=== PATIENT | female | born 1965 | race Caucasian/White ===

== ENCOUNTER → 2016-10-18 | Outpatient (CLI) | payer OTHER ==
[~2016-10-18] MED LIST: ACETAMINOPHEN-H1 TA2 PO; ATIVAN0.5 MG PO; ATIVAN1 MG PO; AUGMENTIN 875875 MG PO; BIOTIN1000 MCG PO; BP MED; Bactrim 200 MG/30 ML PO; CEPHALEXIN500 M1 PO; CIPROFLOXACIN500 MG PO; CLINDAMYCIN150 MG; CYMBALTA60 MG; DIFLUCAN150 MG PO; FLEXERIL10 MG PO; Fioricet 325 MG1 TAB PO; HUMALOG100 U/ML SC; HYDR12.5C PO; INSULIN PUMP; KEFLEX500 M1 PO; LAMISIL250 MG; LANTUS100 U/ML SC; LINZESS145 MC1 PO; LIPITOR10 MG PO; LISINOPRIL10 MG PO; LISINOPRIL40 MG PO; LYRICA100 MG PO; LYRICA150 MG PO; METFORMIN500 MG PO; NAPROSYN500 MG PO; NOVOLOG 701 UNIT/0.0; NOVOLOG100 U/ML SC; OMEPRAZOLE20 MG PO; PAMELOR50 MG PO; QUETIAPINE FUM100 M1; QUETIAPINE FUM200 M2 PO; REGLAN10 M1 PO; SYNTHROID,LEVO50 MCG PO; TAPAZOLE5 MG; TEFLARO600 MG IV; VICODIN 5/500 505 MG PO; VICODIN 500 MG-1 TAB PO; VICODIN ES 7501 TAB PO; VISTARIL50 MG PO; VITAMIN D50000 I3 PO; WELLBUTRIN SR150 MG PO; ZOFRAN ODT4 MG SL; [UNRECOGNIZED DRUG - REMARK]
[2016-10-18 09:53] LABS: BASO % 0.4 % (0.0-1.0); EOS # 0.3 10*3/uL (0.0-0.4); EOS % 2.8 % (1.0-4.0); HEMATOCRIT 40.4 % (37.0-47.0); HEMOGLOBIN 13.6 g/dl (12.0-16.0); LYMPH # 2.5 10*3/uL (1.3-4.4); LYMPH % 27.1 % (27.0-41.0); MEAN CORPUSCULAR HGB 31.6 pg (27.0-31.0); MEAN CORPUSCULAR HGB CONC 33.7 g/dl (33.0-37.0); MEAN PLATELET VOLUME 12.2 fl (9.6-12.3); MONO # 0.7 10*3/uL (0.1-1.0); MONO % 7.3 % (3.0-9.0); NEUT # 5.8 10*3/uL (2.3-7.9); NEUT % 62.2 % (47.0-73.0); PLATELET COUNT AUTOMATED 268 10*3/uL (130-400); RED CELL DISTRI WIDTH 12.9 % (0-14.5); WHITE BLOOD COUNT 9.3 10*3/uL (4.8-10.8)
[2016-10-18 10:23] LABS: ALBUMIN 3.6 gm/dl (3.1-4.5); ALKALINE PHOSPHATASE 102 U/L (45-117); BUN 13 mg/dl (7-24); CHLORIDE 105 mmol/L (98-107); CREATININE 1.09 mg/dL (0.55-1.02); POTASSIUM 4.3 mmol/L (3.5-5.1); SGOT/AST 18 IU/L (3-35); SGPT/ALT 22 U/L (12-78); SODIUM 139 mmol/L (136-145); TOTAL PROTEIN 7.4 gm/dL (6.4-8.2)
[2016-10-19 11:05] LABS: CREATININE,URINE 110.1 mg/dL (Not Estab.); MICRO ALBUMIN/CRE RATIO 9.9 (0.0-30.0)
== END | disposition home or self-care (01) ==
LOC: LAB 09:15
PROVIDERS: Family Medicine Adult Medicine
DX: E10.42 Type 1 diabetes mellitus with diabetic polyneuropathy (principal)

== ENCOUNTER → 2016-11-03 | Outpatient (CLI) | payer OTHER ==
--- NOTE | ~2016-11-03 | PR ---
[place], [place] PROGRESS NOTE NAME: KAREN TELLO [facility] #: [id number] UNIT #: [id number] ROOM: DOCTOR: GINNY HOUSE DPM BIRTHDATE: [birth year] DOS: 11/03/2016 SUBJECTIVE: This is a new patient to me, but she had been seen previously at [facility]. She is here with a new complaint. She has a right great toe area of ulceration and infection. This has been present since August. She states she has been seen by a local spindle tester who just ordered to put antibiotic ointment and a Band-Aid on it, which she has been doing and has not gotten any better. It did become infected and she was on a round of clindamycin from her primary care physician. She has completed that therapy. PHYSICAL EXAMINATION: Lower extremity, it is noted that the right great toe has an area adjacent on the medial aspect that looks to measure 1.2 cm x 0.4 cm x 0.1 cm. No drainage, odor, or deep tracking is noted. This area is again adjacent to what appears to be incurvated portion of the right great toenail. There is no cellulitis, temperature is warm. Prior to her examination, LEO was obtained and on this limb, it was 0.5. DP and PT pulses are not palpable. No hair growth on the skin. IMPRESSION: Diabetic ulceration, possibly perionychia causing this complaint on the right great toe, but because of her what appears to be decreased vascular status on this limb, I am going to recommend we get vascular testing initially prior to any kind of intervention. The patient will be scheduled for ABIs, segmental pressures and PVRs. I will call the patient with these results. For now, we will use bacitracin and Band-Aid to the area daily and then call the patient with those results to see what her blood flow is like and see if there is an appropriate recommendation for vascular intervention and we will go from there. GINNY HOUSE DPM CM:PNTRANS [id number] GINNY HOUSE DPM 11/03/16 1104 interface
== END | disposition home or self-care (01) ==
LOC: WOUNDCARE 02:45 → US 02:45 → LAB 02:45 → WOUNDCARE 11:39
DX: E11.621 Type 2 diabetes mellitus with foot ulcer (principal); L97.412 Non-pressure chronic ulcer of right heel and midfoot with fat layer exposed; I70.235 Atherosclerosis of native arteries of right leg with ulceration of other part of foot; I70.245 Atherosclerosis of native arteries of left leg with ulceration of other part of foot

== ENCOUNTER → 2016-11-08 | Outpatient (CLI) | payer OTHER | END | disposition home or self-care (01) | LOC: ORTHO 02:21 | DX: M25.522 Pain in left elbow (principal) ==

== ENCOUNTER → 2016-11-10 | Outpatient (CLI) | payer OTHER ==
--- NOTE | ~2016-11-10 | PR ---
[place], [place] PROGRESS NOTE NAME: KAREN TELLO [facility] #: [id number] UNIT #: [id number] ROOM: DOCTOR: GINNY HOUSE DPM BIRTHDATE: [birth year] DOS: 11/10/2016 SUBJECTIVE: The patient is seen for right great toe ulceration. She did go for vascular studies last week and they did come back without any evidence of occlusion. PHYSICAL EXAMINATION: It is noted that the great toe wound is very small at 0.5 x 0.3 x 0.1. This area was debrided of slough, debris and necrotic tissue through to subcutaneous. The patient tolerated procedure well and minimal bleeding was noted that was controlled via pressure. No signs of infection or any other complications. IMPRESSION: Grade 1 diabetic ulceration, progressing well. PLAN: 1. Evaluate. 2. Debridement was performed. The patient will continue to use the bacitracin and a Band-Aid to the area and reappoint in 1 week. GINNY HOUSE DPM CM:PNTRANS [id number] GINNY HOUSE DPM 11/10/16 1348 interface
== END | disposition home or self-care (01) ==
LOC: WOUNDCARE 02:40
DX: E11.621 Type 2 diabetes mellitus with foot ulcer (principal); L97.412 Non-pressure chronic ulcer of right heel and midfoot with fat layer exposed; L97.511 Non-pressure chronic ulcer of other part of right foot limited to breakdown of skin

== ENCOUNTER → 2016-11-17 | Outpatient (CLI) | payer OTHER | END | disposition home or self-care (01) | LOC: WOUNDCARE 02:12 | DX: E11.621 Type 2 diabetes mellitus with foot ulcer (principal); L97.412 Non-pressure chronic ulcer of right heel and midfoot with fat layer exposed; F17.210 Nicotine dependence, cigarettes, uncomplicated ==

== ENCOUNTER → 2017-02-14 | Outpatient (CLI) | payer OTHER | END | disposition home or self-care (01) | LOC: WOUNDCARE 01:28 | DX: E11.621 Type 2 diabetes mellitus with foot ulcer (principal); L97.411 Non-pressure chronic ulcer of right heel and midfoot limited to breakdown of skin; F17.210 Nicotine dependence, cigarettes, uncomplicated ==

== ENCOUNTER → 2017-04-18 | Outpatient (CLI) | payer OTHER | END | disposition home or self-care (01) | LOC: RAD 16:02 | DX: M79.674 Pain in right toe(s) (principal); M79.671 Pain in right foot ==

== ENCOUNTER → 2017-11-07 | Outpatient (CLI) | payer OTHER ==
[~2017-11-07] MED LIST changes: +CYCLOBENZAPRINE10 MG PO; +PREDNISONE50 MG PO
== END | disposition home or self-care (01) ==
LOC: CANSCHCLI → MRI 10-25 13:00
DX: M48.02 Spinal stenosis, cervical region (principal); M47.892 Other spondylosis, cervical region; M50.23 Other cervical disc displacement, cervicothoracic region; M48.061 Spinal stenosis, lumbar region without neurogenic claudication; M51.27 Other intervertebral disc displacement, lumbosacral region; M62.838 Other muscle spasm; M19.90 Unspecified osteoarthritis, unspecified site; R20.0 Anesthesia of skin; R20.2 Paresthesia of skin; R42 Dizziness and giddiness; M24.20 Disorder of ligament, unspecified site

== ENCOUNTER 2018-02-02 13:06 | Emergency (ER) | payer OTHER ==
[~2018-02-02] VITALS: Ht 167.6 cm; Wt 59.9 kg
== END 2018-02-02 15:19 | disposition home or self-care (01) ==
LOC: ED 13:06
DX: M79.661 Pain in right lower leg (principal); G89.18 Other acute postprocedural pain; G89.29 Other chronic pain; E11.610 Type 2 diabetes mellitus with diabetic neuropathic arthropathy; F17.200 Nicotine dependence, unspecified, uncomplicated; Z79.4 Long term (current) use of insulin; Z88.1 Allergy status to other antibiotic agents; Z79.899 Other long term (current) drug therapy

== ENCOUNTER → 2018-03-08 | Outpatient (CLI) | payer OTHER | END | disposition home or self-care (01) | LOC: WOUNDCARE 07:22 | DX: E11.621 Type 2 diabetes mellitus with foot ulcer (principal); L97.511 Non-pressure chronic ulcer of other part of right foot limited to breakdown of skin; E11.51 Type 2 diabetes mellitus with diabetic peripheral angiopathy without gangrene; E11.21 Type 2 diabetes mellitus with diabetic nephropathy; K21.9 Gastro-esophageal reflux disease without esophagitis; Z87.891 Personal history of nicotine dependence ==

== ENCOUNTER → 2018-03-15 | Outpatient (CLI) | payer OTHER | END | disposition home or self-care (01) | LOC: WOUNDCARE 03:10 | DX: E11.621 Type 2 diabetes mellitus with foot ulcer (principal); L97.511 Non-pressure chronic ulcer of other part of right foot limited to breakdown of skin; E11.51 Type 2 diabetes mellitus with diabetic peripheral angiopathy without gangrene; E11.21 Type 2 diabetes mellitus with diabetic nephropathy; Z87.891 Personal history of nicotine dependence ==

== ENCOUNTER → 2018-03-15 | Outpatient (CLI) | payer OTHER | END | disposition home or self-care (01) | LOC: RAD 10:49 | DX: L97.519 Non-pressure chronic ulcer of other part of right foot with unspecified severity (principal); L03.031 Cellulitis of right toe; I70.208 Unspecified atherosclerosis of native arteries of extremities, other extremity; E11.21 Type 2 diabetes mellitus with diabetic nephropathy ==

== ENCOUNTER → 2018-03-18 | Outpatient (CLI) | payer OTHER | END | disposition home or self-care (01) | LOC: US 02:28 | DX: I74.3 Embolism and thrombosis of arteries of the lower extremities (principal); I73.9 Peripheral vascular disease, unspecified; T81.89XA Other complications of procedures, not elsewhere classified, initial encounter; E11.9 Type 2 diabetes mellitus without complications; I10 Essential (primary) hypertension; Z87.891 Personal history of nicotine dependence ==

== ENCOUNTER → 2018-03-22 | Outpatient (CLI) | payer OTHER | END | disposition home or self-care (01) | LOC: WOUNDCARE 03:07 | DX: E11.621 Type 2 diabetes mellitus with foot ulcer (principal); L97.511 Non-pressure chronic ulcer of other part of right foot limited to breakdown of skin; E11.21 Type 2 diabetes mellitus with diabetic nephropathy; E11.51 Type 2 diabetes mellitus with diabetic peripheral angiopathy without gangrene; Z87.891 Personal history of nicotine dependence ==

== ENCOUNTER → 2018-04-18 | Outpatient (CLI) | payer OTHER | END | disposition home or self-care (01) | LOC: RAD 17:08 | DX: M43.22 Fusion of spine, cervical region (principal); Z98.1 Arthrodesis status ==

== ENCOUNTER → 2018-09-17 | Outpatient (CLI) | payer OTHER | END | disposition home or self-care (01) | LOC: RAD 16:25 | DX: M48.02 Spinal stenosis, cervical region (principal); M43.12 Spondylolisthesis, cervical region; R20.0 Anesthesia of skin; Z98.1 Arthrodesis status ==

== ENCOUNTER 2018-12-19 14:30 | Emergency (ER) | payer OTHER ==
[~2018-12-19] VITALS: Ht 167.6 cm; Wt 65.3 kg
[2018-12-19 15:15] LABS: BASO % 0.5 % (0.0-1.0); EOS # 0.1 10*3/uL (0.0-0.4); EOS % 1.2 % (1.0-4.0); HEMATOCRIT 38.2 % (37.0-47.0); HEMOGLOBIN 12.6 g/dl (12.0-16.0); LYMPH # 2.2 10*3/uL (1.3-4.4); LYMPH % 32.6 % (27.0-41.0); MEAN CELL VOLUME 92.3 fl (81.0-99.0); MEAN CORPUSCULAR HGB 30.4 pg (27.0-31.0); MEAN PLATELET VOLUME 11.9 fl (9.6-12.3); MONO # 0.4 10*3/uL (0.1-1.0); MONO % 5.3 % (3.0-9.0); NEUT % 60.1 % (47.0-73.0); PLATELET COUNT AUTOMATED 238 10*3/uL (130-400); RED BLOOD COUNT 4.14 10*6/uL (4.10-5.10); RED CELL DISTRI WIDTH 12.6 % (0-14.5); WHITE BLOOD COUNT 6.7 10*3/uL (4.8-10.8)
[2018-12-19 15:36] LABS: ALBUMIN 3.8 gm/dl (3.1-4.5); ALKALINE PHOSPHATASE 73 U/L (45-117); BUN 14 mg/dl (7-24); CHLORIDE 107 mmol/L (98-107); CREATININE 1.03 mg/dL (0.55-1.02); LIPASE 119 U/L (73-393); POTASSIUM 3.7 mmol/L (3.5-5.1); SGOT/AST 18 IU/L (3-35); SGPT/ALT 25 U/L (12-78); SODIUM 140 mmol/L (136-145); TOTAL PROTEIN 7.4 gm/dL (6.4-8.2)
[2018-12-19 15:44] LABS: BILIRUBIN NEGATIVE (NEGATIVE); BLOOD NEGATIVE (NEGATIVE); CLARITY CLEAR (CLEAR); COLOR STRAW (YELLOW); GLUCOSE NEGATIVE (NEGATIVE); KETONE NEGATIVE (NEGATIVE); LEUKO ESTERASE 2+ (NEGATIVE); NITRITE NEGATIVE (NEGATIVE); SPECIFIC GRAVITY <= 1.005 (1.005-1.030); UROBILINOGEN 0.2 E.U./dl (0.2-1.0)
[2018-12-19 16:10] LABS: EPITHELIAL CELLS TNTC; WBC 51-100 wbc/hpf (0-5)
[2018-12-19 16:11] LABS: BACTERIA TRACE
[2018-12-19] MEDS ORDERED: SEPTDS PO ×2 (17:05→17:23)
[2018-12-19] MEDS ORDERED: NAPROSYN500 MG PO ×2 (17:05→17:23)
[2018-12-19] MEDS ORDERED: TYLENOL325 M1 PO ×2 (17:06→17:23)
== END 2018-12-19 17:15 | disposition home or self-care (01) ==
LOC: ED 14:30
PROVIDERS: Emergency Medicine
DX: N39.0 Urinary tract infection, site not specified (principal); N20.0 Calculus of kidney; E10.628 Type 1 diabetes mellitus with other skin complications; E10.43 Type 1 diabetes mellitus with diabetic autonomic (poly)neuropathy; K31.84 Gastroparesis; E03.9 Hypothyroidism, unspecified; E78.5 Hyperlipidemia, unspecified; I10 Essential (primary) hypertension; F17.200 Nicotine dependence, unspecified, uncomplicated; Z79.2 Long term (current) use of antibiotics; Z79.899 Other long term (current) drug therapy

== ENCOUNTER → 2019-01-03 | Outpatient (CLI) | payer OTHER ==
[~2019-01-03] MED LIST changes: +SEPTDS PO; +TYLENOL325 M1 PO
== END | disposition home or self-care (01) ==
LOC: ORTHO 00:27
DX: M19.042 Primary osteoarthritis, left hand (principal)

== ENCOUNTER → 2019-09-03 | Outpatient (CLI) | payer OTHER | END | disposition home or self-care (01) | LOC: US 13:34 | DX: Z01.818 Encounter for other preprocedural examination (principal); E04.1 Nontoxic single thyroid nodule ==

== ENCOUNTER → 2019-09-04 | Outpatient (CLI) | payer OTHER | END | disposition home or self-care (01) | LOC: MAMMO 00:30 | DX: Z12.31 Encounter for screening mammogram for malignant neoplasm of breast (principal); R73.03 Prediabetes ==

== ENCOUNTER → 2020-05-05 | Outpatient (CLI) | payer OTHER | END | disposition home or self-care (01) | LOC: COVID19 13:19 | PROVIDERS: ATTEND Family Medicine | DX: U07.1 COVID-19 (principal) ==

== ENCOUNTER 2020-05-24 23:54 | Emergency (ER) | payer OTHER ==
[~2020-05-24] VITALS: Ht 167.6 cm; Wt 68.0 kg
[2020-05-25 00:25] LABS: BASO # 0.1 10*3/uL (0.0-0.1); BASO % 0.5 % (0.0-1.0); EOS # 0.1 10*3/uL (0.0-0.4); EOS % 1.1 % (1.0-4.0); HEMATOCRIT 37.7 % (37.0-47.0); LYMPH % 21.8 % (27.0-41.0); MEAN CELL VOLUME 93.8 fl (81.0-99.0); MEAN CORPUSCULAR HGB 30.8 pg (27.0-31.0); MEAN CORPUSCULAR HGB CONC 32.9 g/dl (33.0-37.0); MEAN PLATELET VOLUME 12.4 fl (9.6-12.3); MONO # 0.6 10*3/uL (0.1-1.0); NEUT # 6.6 10*3/uL (2.3-7.9); NEUT % 70.4 % (47.0-73.0); PLATELET COUNT AUTOMATED 240 10*3/uL (130-400); RED BLOOD COUNT 4.02 10*6/uL (4.10-5.10); RED CELL DISTRI WIDTH 11.8 % (0-14.5); WHITE BLOOD COUNT 9.3 10*3/uL (4.8-10.8)
[2020-05-25 00:40] LABS: ALBUMIN 3.4 gm/dl (3.1-4.5); CREATININE 1.55 mg/dL (0.55-1.02); POTASSIUM 4.2 mmol/L (3.5-5.1); TOTAL PROTEIN 7.1 gm/dL (6.4-8.2)
[2020-05-25 01:29] LABS: BILIRUBIN Negative (Negative); BLOOD Negative (Negative); CLARITY Clear (Clear); COLOR Yellow (Yellow); GLUCOSE 3+ (Negative); KETONE 1+ (Negative); LEUKO ESTERASE Negative (Negative); NITRITE Negative (Negative); SPECIFIC GRAVITY 1.015 (1.001-1.030)
[2020-05-25 01:36] LABS: EPITHELIAL CELLS 16-20
== END 2020-05-25 02:18 | disposition home or self-care (01) ==
LOC: ED 23:54
PROVIDERS: Internal Medicine
DX: E10.65 Type 1 diabetes mellitus with hyperglycemia (principal); N17.9 Acute kidney failure, unspecified; E10.22 Type 1 diabetes mellitus with diabetic chronic kidney disease; N18.9 Chronic kidney disease, unspecified; Z79.2 Long term (current) use of antibiotics; Z79.899 Other long term (current) drug therapy; Z79.4 Long term (current) use of insulin; Z98.890 Other specified postprocedural states

== ENCOUNTER → 2020-08-03 | Outpatient (CLI) | payer OTHER, MEDICAID | END | disposition home or self-care (01) | LOC: MAMMO 13:30 → US 13:30 | PROVIDERS: ATTEND Nurse Practitioner Family | DX: R10.2 Pelvic and perineal pain (principal); Z78.0 Asymptomatic menopausal state ==

== ENCOUNTER → 2020-09-02 | Outpatient (CLI) | payer OTHER, MEDICAID | END | disposition home or self-care (01) | LOC: MAMMO 08-03 13:30 | PROVIDERS: ATTEND Family Medicine | DX: M47.816 Spondylosis without myelopathy or radiculopathy, lumbar region (principal); R92.8 Other abnormal and inconclusive findings on diagnostic imaging of breast; M50.30 Other cervical disc degeneration, unspecified cervical region; M48.02 Spinal stenosis, cervical region; M25.78 Osteophyte, vertebrae; T85.43XD Leakage of breast prosthesis and implant, subsequent encounter ==

== ENCOUNTER → 2020-09-16 | Outpatient (CLI) | payer OTHER, MEDICAID ==
[2020-09-16 12:49] LABS: HEMATOCRIT 38.5 % (37.0-47.0); MEAN CELL VOLUME 95.8 fl (81.0-99.0); MEAN CORPUSCULAR HGB 31.1 pg (27.0-31.0); MEAN CORPUSCULAR HGB CONC 32.5 g/dl (33.0-37.0); MEAN PLATELET VOLUME 11.9 fl (9.6-12.3); RED BLOOD COUNT 4.02 10*6/uL (4.10-5.10); RED CELL DISTRI WIDTH 13.7 % (0-14.5); WHITE BLOOD COUNT 7.8 10*3/uL (4.8-10.8)
[2020-09-16 13:07] LABS: ALKALINE PHOSPHATASE 85 U/L (45-117); BUN 16 mg/dl (7-24); CHLORIDE 108 mmol/L (98-107); CHOLESTEROL 164 mg/dL (<200); CREATININE 1.02 mg/dL (0.55-1.02); LDL CHOLESTEROL 69 mg/dL (9-159); POTASSIUM 4.5 mmol/L (3.5-5.1); SGOT/AST 17 IU/L (3-35); SGPT/ALT 22 U/L (12-78); SODIUM 133 mmol/L (136-145); TOTAL PROTEIN 7.5 gm/dL (6.4-8.2); TRIGLYCERIDES 150 mg/dl (<150)
[2020-09-21 11:07] LABS: HLA-B27 ANTIGEN Negative (.)
== END | disposition home or self-care (01) ==
LOC: LAB 12:11
PROVIDERS: ATTEND Family Medicine
DX: Z13.220 Encounter for screening for lipoid disorders (principal); M54.9 Dorsalgia, unspecified; R07.81 Pleurodynia; E10.9 Type 1 diabetes mellitus without complications; L75.0 Bromhidrosis; F41.9 Anxiety disorder, unspecified

== ENCOUNTER → 2020-10-22 | Outpatient (CLI) | payer OTHER, MEDICAID | END | disposition home or self-care (01) | LOC: MRI 09:50 | PROVIDERS: ATTEND Physician Assistant Medical | DX: M47.22 Other spondylosis with radiculopathy, cervical region (principal); M25.78 Osteophyte, vertebrae; R29.898 Other symptoms and signs involving the musculoskeletal system; G56.03 Carpal tunnel syndrome, bilateral upper limbs; M43.22 Fusion of spine, cervical region ==

== ENCOUNTER → 2021-01-18 | Day surgery (SDC) | payer OTHER, MEDICAID ==
[~2021-01-18] VITALS: Ht 167.6 cm; Wt 70.3 kg
[~2021-01-18] MED LIST changes: +CLOPIDOGREL75 MG PO; +HYDROCODONE-AC1 EAC1 PO; +ROSUVASTATIN CA20 MG PO
[2021-01-18 06:45] VITALS: BP 147/87
[2021-01-18 09:12] VITALS: BP 137/72
[2021-01-18 09:27] VITALS: BP 141/73
[2021-01-18 09:42] VITALS: BP 151/81
== END | disposition home or self-care (01) ==
LOC: SDC 06:28
PROVIDERS: ATTEND Orthopaedic Surgery
DX: G56.02 Carpal tunnel syndrome, left upper limb (principal); M65.842 Other synovitis and tenosynovitis, left hand; G56.22 Lesion of ulnar nerve, left upper limb; F32.9 Major depressive disorder, single episode, unspecified; I10 Essential (primary) hypertension; E11.40 Type 2 diabetes mellitus with diabetic neuropathy, unspecified; Z79.899 Other long term (current) drug therapy; Z20.822 Contact with and (suspected) exposure to COVID-19

== ENCOUNTER 2021-02-25 15:22 | Emergency (ER) | payer OTHER, MEDICAID | END 2021-02-25 20:39 | disposition home or self-care (01) | LOC: ED 15:22 | DX: J06.9 Acute upper respiratory infection, unspecified (principal); E11.9 Type 2 diabetes mellitus without complications; F17.200 Nicotine dependence, unspecified, uncomplicated; Z79.899 Other long term (current) drug therapy; Z79.4 Long term (current) use of insulin; Z98.890 Other specified postprocedural states; Z98.51 Tubal ligation status ==

== ENCOUNTER → 2021-03-09 | Day surgery (SDC) | payer OTHER, MEDICAID | END | disposition home or self-care (01) | LOC: SDC 13:30 | PROVIDERS: ATTEND Orthopaedic Surgery | DX: E10.42 Type 1 diabetes mellitus with diabetic polyneuropathy (principal) ==

== ENCOUNTER → 2021-03-29 | Outpatient (CLI) | payer OTHER, MEDICAID | END | disposition home or self-care (01) | LOC: RAD 16:59 | PROVIDERS: ATTEND Nurse Practitioner Primary Care | DX: M79.89 Other specified soft tissue disorders (principal); L03.031 Cellulitis of right toe ==

== ENCOUNTER → 2021-09-16 | Outpatient (CLI) | payer OTHER, MEDICAID ==
[2021-09-16 13:12] LABS: BILIRUBIN Negative (Negative); BLOOD Negative (Negative); CLARITY Clear (Clear); COLOR Yellow (Yellow); GLUCOSE Negative (Negative); KETONE Negative (Negative); LEUKO ESTERASE 1+ (Negative); NITRITE Negative (Negative); PH 6.5 (4.5-8.0)
[2021-09-16 13:39] LABS: BACTERIA 1+
[2021-09-16 13:41] LABS: BUN 14 mg/dl (7-24); CHLORIDE 106 mmol/L (98-107); CHOLESTEROL 154 mg/dL (<200); CREATININE 1.04 mg/dL (0.55-1.02); POTASSIUM 4.2 mmol/L (3.5-5.1); SGOT/AST 16 IU/L (3-35); SGPT/ALT 16 U/L (12-78); SODIUM 139 mmol/L (136-145); TOTAL PROTEIN 7.3 gm/dL (6.4-8.2); TRIGLYCERIDES 90 mg/dl (<150); URIC ACID 4.5 mg/dL (2.6-6.0)
[2021-09-16 13:44] LABS: VITAMIN D, 25-HYDROXY 29.1 ng/mL (30-100)
[2021-09-16 13:47] LABS: ALKALINE PHOSPHATASE 92 U/L (45-117); LDL CHOLESTEROL 70 mg/dL (9-159)
== END | disposition home or self-care (01) ==
LOC: LAB 12:40
PROVIDERS: ATTEND Internal Medicine
DX: E10.65 Type 1 diabetes mellitus with hyperglycemia (principal); E78.2 Mixed hyperlipidemia; E55.9 Vitamin D deficiency, unspecified; M10.9 Gout, unspecified; G62.9 Polyneuropathy, unspecified; E04.1 Nontoxic single thyroid nodule

== ENCOUNTER → 2022-02-27 | Outpatient (CLI) | payer OTHER, MEDICAID ==
[2022-02-27 10:40] LABS: BILIRUBIN Negative (Negative); BLOOD Negative (Negative); CLARITY Clear (Clear); COLOR Yellow (Yellow); GLUCOSE 3+ (Negative); KETONE Negative (Negative); LEUKO ESTERASE 2+ (Negative); NITRITE Negative (Negative); PH 6.5 (4.5-8.0)
[2022-02-27 10:58] LABS: ALKALINE PHOSPHATASE 92 U/L (46-116); BUN 14 mg/dl (9-23); CHLORIDE 106 mmol/L (98-107); CHOLESTEROL 162 mg/dL (<200); LDL CHOLESTEROL 68 mg/dL (9-159); POTASSIUM 4.4 mmol/L (3.4-5.1); SGPT/ALT 20 U/L (10-49); THYROID STIM HORMONE (HS) 2.961 uIU/ml (0.550-4.780); TOTAL PROTEIN 7.5 gm/dL (6.0-8.0); TRIGLYCERIDES 71 mg/dl (<150); URIC ACID 5.7 mg/dL (3.1-9.2)
[2022-02-27 11:14] LABS: VITAMIN D, 25-HYDROXY 19.2 ng/mL (30-100)
[2022-02-27 11:42] LABS: BACTERIA TRACE; EPITHELIAL CELLS 16-20; WBC 16-20 wbc/hpf (0-5)
== END | disposition home or self-care (01) ==
LOC: LAB 10:11
PROVIDERS: ATTEND Internal Medicine
DX: E10.65 Type 1 diabetes mellitus with hyperglycemia (principal); E55.9 Vitamin D deficiency, unspecified; G62.9 Polyneuropathy, unspecified; E04.1 Nontoxic single thyroid nodule; E78.2 Mixed hyperlipidemia; M10.9 Gout, unspecified

== ENCOUNTER → 2022-06-16 | Outpatient (CLI) | payer OTHER, MEDICAID ==
[2022-06-16 11:57] LABS: ALKALINE PHOSPHATASE 79 U/L (46-116); BUN 13 mg/dl (9-23); CHLORIDE 103 mmol/L (98-107); CHOLESTEROL 124 mg/dL (<200); LDL CHOLESTEROL 49 mg/dL (9-159); POTASSIUM 5.7 mmol/L (3.4-5.1); SGPT/ALT 10 U/L (10-49); TRIGLYCERIDES 100 mg/dl (<150); URIC ACID 5.6 mg/dL (3.1-7.8)
[2022-06-16 12:08] LABS: VITAMIN D, 25-HYDROXY 34.1 ng/mL (30-100)
[2022-06-16 12:15] LABS: BILIRUBIN Negative (Negative); BLOOD Negative (Negative); CLARITY Clear (Clear); COLOR Yellow (Yellow); GLUCOSE Negative (Negative); KETONE Negative (Negative); LEUKO ESTERASE 1+ (Negative); NITRITE Negative (Negative); PH 7.5 (4.5-8.0)
== END | disposition home or self-care (01) ==
LOC: LAB 10:37
PROVIDERS: ATTEND Internal Medicine
DX: E10.65 Type 1 diabetes mellitus with hyperglycemia (principal); E04.1 Nontoxic single thyroid nodule; E55.9 Vitamin D deficiency, unspecified; G62.9 Polyneuropathy, unspecified; E78.2 Mixed hyperlipidemia; M10.9 Gout, unspecified

== ENCOUNTER 2022-07-03 18:22 | Emergency (ER) | payer OTHER, MEDICAID ==
[~2022-07-03] VITALS: Ht 167.6 cm; Wt 68.0 kg
[2022-07-03] MEDS ORDERED: PERCOCET 5-3251 EACH PO (20:10)
== END 2022-07-03 20:34 | disposition home or self-care (01) ==
LOC: ED 18:22
DX: M54.2 Cervicalgia (principal); Z79.899 Other long term (current) drug therapy; Z98.890 Other specified postprocedural states; Z98.51 Tubal ligation status; Z87.891 Personal history of nicotine dependence

== ENCOUNTER 2022-07-29 23:21 | Emergency (ER) | payer OTHER, MEDICAID ==
[~2022-07-29] VITALS: Ht 167.6 cm; Wt 59.0 kg
[~2022-07-29 23:21] MED LIST changes: +PERCOCET 5-3251 EACH PO
[2022-07-29 23:58] LABS: BASO % 0.4 % (0.0-1.0); EOS # 0.1 10*3/uL (0.0-0.4); EOS % 0.8 % (1.0-4.0); HEMATOCRIT 35.4 % (37.0-47.0); LYMPH # 1.8 10*3/uL (1.3-4.4); LYMPH % 23.3 % (27.0-41.0); MEAN CELL VOLUME 93.2 fl (81.0-99.0); MEAN CORPUSCULAR HGB 31.3 pg (27.0-31.0); MEAN CORPUSCULAR HGB CONC 33.6 g/dl (33.0-37.0); MEAN PLATELET VOLUME 11.7 fl (9.6-12.3); MONO # 0.4 10*3/uL (0.1-1.0); MONO % 5.4 % (3.0-9.0); NEUT # 5.5 10*3/uL (2.3-7.9); NEUT % 69.8 % (47.0-73.0); PLATELET COUNT AUTOMATED 269 10*3/uL (130-400); RED CELL DISTRI WIDTH 13.8 % (0-14.5); WHITE BLOOD COUNT 7.9 10*3/uL (4.8-10.8)
[2022-07-30 00:10] LABS: ACT PARTIAL THROMBO TIME 26.2 SECONDS (20.0-32.1)
[2022-07-30 00:21] LABS: ALKALINE PHOSPHATASE 71 U/L (46-116); BUN 17 mg/dl (9-23); CHLORIDE 104 mmol/L (98-107); SGPT/ALT 13 U/L (10-49); TOTAL PROTEIN 7.1 gm/dL (6.0-8.0)
== END 2022-07-30 03:19 | disposition left against medical advice (07) ==
LOC: ED 23:21
PROVIDERS: Emergency Medicine
DX: R55 Syncope and collapse (principal); E78.5 Hyperlipidemia, unspecified; E11.22 Type 2 diabetes mellitus with diabetic chronic kidney disease; I12.9 Hypertensive chronic kidney disease with stage 1 through stage 4 chronic kidney disease, or unspecified chronic kidney disease; N18.9 Chronic kidney disease, unspecified; N17.9 Acute kidney failure, unspecified; Z79.4 Long term (current) use of insulin; D64.9 Anemia, unspecified; E16.2 Hypoglycemia, unspecified; E03.9 Hypothyroidism, unspecified; E11.40 Type 2 diabetes mellitus with diabetic neuropathy, unspecified; F32.A Depression, unspecified; E11.65 Type 2 diabetes mellitus with hyperglycemia; Z98.51 Tubal ligation status; Z98.890 Other specified postprocedural states; F17.200 Nicotine dependence, unspecified, uncomplicated

== ENCOUNTER 2023-02-04 17:25 | Emergency (ER) | payer OTHER, MEDICAID ==
[~2023-02-04] VITALS: Ht 167.6 cm; Wt 65.8 kg
[2023-02-04 18:22] LABS: BASO % 0.2 % (0.0-1.0); HEMATOCRIT 34.1 % (37.0-47.0); LYMPH # 1.7 10*3/uL (1.3-4.4); LYMPH % 8.3 % (27.0-41.0); MEAN CELL VOLUME 93.4 fl (81.0-99.0); MEAN CORPUSCULAR HGB 30.7 pg (27.0-31.0); MEAN CORPUSCULAR HGB CONC 32.8 g/dl (33.0-37.0); MEAN PLATELET VOLUME 10.4 fl (9.6-12.3); MONO # 1.4 10*3/uL (0.1-1.0); MONO % 6.5 % (3.0-9.0); NEUT # 17.7 10*3/uL (2.3-7.9); NEUT % 84.4 % (47.0-73.0); PLATELET COUNT AUTOMATED 422 10*3/uL (130-400); RED BLOOD COUNT 3.65 10*6/uL (4.10-5.10); RED CELL DISTRI WIDTH 14.3 % (0-14.5); WHITE BLOOD COUNT 20.9 10*3/uL (4.8-10.8)
[2023-02-04 18:43] LABS: POTASSIUM 4.6 mmol/L (3.4-5.1); TOTAL PROTEIN 7.5 gm/dL (6.0-8.0)
[2023-02-04 19:45] LABS: ACT PARTIAL THROMBO TIME 21.2 SECONDS (20.0-32.1)
[2023-02-04 22:16] LABS: BILIRUBIN Negative (Negative); BLOOD Negative (Negative); CLARITY Clear (Clear); COLOR Yellow (Yellow); GLUCOSE Negative (Negative); KETONE 1+ (Negative); LEUKO ESTERASE Negative (Negative); NITRITE Negative (Negative); SPECIFIC GRAVITY >= 1.030 (1.001-1.030); UROBILINOGEN 0.2 E.U./dl (0.0-1.0)
[2023-02-04 22:51] LABS: BACTERIA TRACE; EPITHELIAL CELLS 21-30; RBC 0-2 rbc/hpf (0-2); WBC 0-2 wbc/hpf (0-5)
== END 2023-02-04 23:35 | disposition short-term general hospital (02) ==
LOC: ED 17:25
PROVIDERS: Physician Assistant Medical
DX: I70.202 Unspecified atherosclerosis of native arteries of extremities, left leg (principal); R11.2 Nausea with vomiting, unspecified; E10.51 Type 1 diabetes mellitus with diabetic peripheral angiopathy without gangrene; F41.9 Anxiety disorder, unspecified; E10.22 Type 1 diabetes mellitus with diabetic chronic kidney disease; N18.9 Chronic kidney disease, unspecified; F17.200 Nicotine dependence, unspecified, uncomplicated; Z79.899 Other long term (current) drug therapy; Z79.4 Long term (current) use of insulin; Z98.890 Other specified postprocedural states; Z98.51 Tubal ligation status; Z95.5 Presence of coronary angioplasty implant and graft

== ENCOUNTER → 2023-09-04 | Outpatient (CLI) | payer OTHER ==
[~2023-09-04] MED LIST changes: +GABAPENTIN100 M2 PO; +INSULIN LI100 UNIT/1 SC; +ONDANSETRON ODT8 MG PO
[2023-09-04 13:21] LABS: BILIRUBIN Negative (Negative); BLOOD Negative (Negative); CLARITY Clear (Clear); COLOR Yellow (Yellow); GLUCOSE 2+ (Negative); KETONE Trace (Negative); LEUKO ESTERASE 1+ (Negative); NITRITE Negative (Negative); PH 7.5 (4.5-8.0)
[2023-09-04 14:02] LABS: ALKALINE PHOSPHATASE 90 U/L (46-116); BUN 17 mg/dl (9-23); CHLORIDE 109 mmol/L (98-107); CHOLESTEROL 193 mg/dL (<200); FREE T4 1.12 ng/dl (0.89-1.76); LDL CHOLESTEROL 117 mg/dL (9-159); POTASSIUM 4.3 mmol/L (3.4-5.1); SGPT/ALT 8 U/L (5-49); TRIGLYCERIDES 82 mg/dl (<150)
[2023-09-04 14:07] LABS: EPITHELIAL CELLS 16-20
[2023-09-04 14:08] LABS: RBC 0-2 rbc/hpf (0-2)
== END | disposition home or self-care (01) ==
LOC: LAB 12:56
PROVIDERS: ATTEND Internal Medicine
DX: E10.65 Type 1 diabetes mellitus with hyperglycemia (principal); E55.9 Vitamin D deficiency, unspecified; E04.1 Nontoxic single thyroid nodule; E78.2 Mixed hyperlipidemia

== ENCOUNTER → 2023-09-13 | Outpatient (CLI) | payer OTHER | END | disposition home or self-care (01) | LOC: MAMMO 01:04 | PROVIDERS: ATTEND Internal Medicine | DX: Z01.818 Encounter for other preprocedural examination (principal); Z98.82 Breast implant status ==

== ENCOUNTER → 2024-01-29 | Outpatient (CLI) | payer OTHER ==
[2024-01-29 12:40] LABS: ALKALINE PHOSPHATASE 69 U/L (46-116); BUN 16 mg/dl (9-23); CHLORIDE 106 mmol/L (98-107); CHOLESTEROL 224 mg/dL (<200); LDL CHOLESTEROL 127 mg/dL (9-159); SGPT/ALT 12 U/L (5-49); TOTAL PROTEIN 7.4 gm/dL (6.0-8.0); TRIGLYCERIDES 97 mg/dl (<150)
== END | disposition home or self-care (01) ==
LOC: LAB 11:32
PROVIDERS: Student in an Organized Health Care Education/Training Program; ATTEND Internal Medicine Endocrinology, Diabetes & Metabolism
DX: E10.65 Type 1 diabetes mellitus with hyperglycemia (principal)

== ENCOUNTER → 2024-02-29 | Outpatient (CLI) | payer OTHER | END | disposition home or self-care (01) | LOC: ORTHO 03:19 | PROVIDERS: ATTEND Orthopaedic Surgery | DX: M19.031 Primary osteoarthritis, right wrist (principal); M67.431 Ganglion, right wrist ==

== ENCOUNTER → 2024-03-20 | Day surgery (SDC) | payer OTHER ==
[2024-03-18 10:35] LABS: POTASSIUM 4.2 mmol/L (3.4-5.1)
[~2024-03-20] VITALS: Ht 167.6 cm; Wt 59.4 kg
[~2024-03-20] MED LIST changes: +ACETAMINOPHEN 100 ML IV ONE; +BUPIVACAINE 0.5% 30 ML IV ONE; +Ketorolac Tromethamine 30 MG/ML VIAL IV ONE; +Lactated Ringer's Solution 1,000 ML IV ONE; +Lactated Ringer's Solution 1,000 ML IV SCH; +Lidocaine Hydrochloride 2% 10 ML AMP IM ONE; +Lidocaine Hydrochloride 30 ML VIAL ONE; +Ondansetron Hydrochloride 4 MG/2 ML VIAL IV ONE; +PROPOFOL 200 MG/20 ML VIAL IV ONE; +Phenylephrine Hydrochloride 10 MG/ML VIAL IV ONE; +ROCURONIUM BROMIDE 50 MG/5 ML SYRINGE IV ONE; +SEVOFLURANE 250 ML BOT INH ONE; +SUGAMMADEX SODIUM 200 MG/2 ML VIAL IV ONE; +ceFAZolin sodium 1GM/10ML IV SCH; +ceFAZolin sodium/sodium chlor 10 ML IV ONE; +ePHEDrine Sulfate 25 MG/5 ML SYRINGE IV ONE; +fentaNYL CITRATE 100 MCG/2 ML VIAL IV ONE
[2024-03-20 07:35] VITALS: BP 155/74
[2024-03-20 09:45] VITALS: BP 170/77
[2024-03-20 10:00] VITALS: BP 156/73
[2024-03-20 10:15] VITALS: BP 160/74
[2024-03-20 10:30] VITALS: BP 160/74
== END | disposition home or self-care (01) ==
LOC: SDC 03-17 12:30
PROVIDERS: ATTEND Orthopaedic Surgery
DX: G56.01 Carpal tunnel syndrome, right upper limb (principal); G56.21 Lesion of ulnar nerve, right upper limb; E10.42 Type 1 diabetes mellitus with diabetic polyneuropathy; I10 Essential (primary) hypertension; E78.00 Pure hypercholesterolemia, unspecified; E10.319 Type 1 diabetes mellitus with unspecified diabetic retinopathy without macular edema; E10.10 Type 1 diabetes mellitus with ketoacidosis without coma; G43.909 Migraine, unspecified, not intractable, without status migrainosus; F32.A Depression, unspecified; K21.9 Gastro-esophageal reflux disease without esophagitis; E05.90 Thyrotoxicosis, unspecified without thyrotoxic crisis or storm; F10.90 Alcohol use, unspecified, uncomplicated; Z98.891 History of uterine scar from previous surgery; Z98.51 Tubal ligation status; Z96.41 Presence of insulin pump (external) (internal); Z87.891 Personal history of nicotine dependence; Z98.890 Other specified postprocedural states; Z79.4 Long term (current) use of insulin; Z79.899 Other long term (current) drug therapy; Z83.3 Family history of diabetes mellitus

== ENCOUNTER 2024-03-27 12:01 | Emergency (ER) | payer OTHER ==
[~2024-03-27] VITALS: Ht 167.6 cm; Wt 59.0 kg
[~2024-03-27 12:01] MED LIST changes: -ACETAMINOPHEN 100 ML IV ONE; -BUPIVACAINE 0.5% 30 ML IV ONE; -Ketorolac Tromethamine 30 MG/ML VIAL IV ONE; -Lactated Ringer's Solution 1,000 ML IV ONE; -Lactated Ringer's Solution 1,000 ML IV SCH; -Lidocaine Hydrochloride 2% 10 ML AMP IM ONE; -Lidocaine Hydrochloride 30 ML VIAL ONE; -Ondansetron Hydrochloride 4 MG/2 ML VIAL IV ONE; -PROPOFOL 200 MG/20 ML VIAL IV ONE; -Phenylephrine Hydrochloride 10 MG/ML VIAL IV ONE; -ROCURONIUM BROMIDE 50 MG/5 ML SYRINGE IV ONE; -SEVOFLURANE 250 ML BOT INH ONE; -SUGAMMADEX SODIUM 200 MG/2 ML VIAL IV ONE; -ceFAZolin sodium 1GM/10ML IV SCH; -ceFAZolin sodium/sodium chlor 10 ML IV ONE; -ePHEDrine Sulfate 25 MG/5 ML SYRINGE IV ONE; -fentaNYL CITRATE 100 MCG/2 ML VIAL IV ONE
[2024-03-27] MEDS ORDERED: SODIUM CHLORIDE 0.9% 1,000 ML IV ONE (12:25)
[2024-03-27 12:35] LABS: BILIRUBIN Negative (Negative); BLOOD Negative (Negative); CLARITY Clear (Clear); COLOR Yellow (Yellow); GLUCOSE 3+ (Negative); KETONE 1+ (Negative); LEUKO ESTERASE Negative (Negative); NITRITE Negative (Negative)
[2024-03-27 12:36] LABS: BASO % 0.5 % (0.0-1.0); EOS % 0.3 % (1.0-4.0); HEMATOCRIT 35.2 % (37.0-47.0); MEAN CELL VOLUME 98.1 fl (81.0-99.0); MEAN CORPUSCULAR HGB 31.2 pg (27.0-31.0); MEAN CORPUSCULAR HGB CONC 31.8 g/dl (33.0-37.0); MEAN PLATELET VOLUME 10.4 fl (9.6-12.3); MONO # 0.4 10*3/uL (0.1-1.0); MONO % 4.6 % (3.0-9.0); NEUT # 7.1 10*3/uL (2.3-7.9); NEUT % 81.2 % (47.0-73.0); PLATELET COUNT AUTOMATED 338 10*3/uL (130-400); RED BLOOD COUNT 3.59 10*6/uL (4.10-5.10); RED CELL DISTRI WIDTH 12.1 % (0-14.5); WHITE BLOOD COUNT 8.8 10*3/uL (4.8-10.8)
[2024-03-27 12:43] LABS: RBC 0-2 rbc/hpf (0-2)
[2024-03-27 13:14] LABS: POTASSIUM 5.1 mmol/L (3.4-5.1)
[2024-03-27] MEDS ORDERED: INSULIN REGULAR, HUMAN 15 UNIT IV ONE (13:20)
[2024-03-27] MEDS ORDERED: INSULIN REGULAR, HUMAN 1 UNIT/0.01 ML IV ONE (13:20)
== END 2024-03-27 15:08 | disposition home or self-care (01) ==
LOC: ED 12:01
PROVIDERS: Internal Medicine
DX: E11.65 Type 2 diabetes mellitus with hyperglycemia (principal); F32.A Depression, unspecified; E11.40 Type 2 diabetes mellitus with diabetic neuropathy, unspecified; I10 Essential (primary) hypertension; F17.210 Nicotine dependence, cigarettes, uncomplicated; Z79.4 Long term (current) use of insulin; Z98.890 Other specified postprocedural states

== ENCOUNTER → 2024-05-15 | Outpatient (CLI) | payer OTHER ==
[2024-05-15 10:29] LABS: ALKALINE PHOSPHATASE 62 U/L (46-116); BUN 18 mg/dl (9-23); CHLORIDE 106 mmol/L (98-107); CHOLESTEROL 226 mg/dL (<200); LDL CHOLESTEROL 124 mg/dL (9-159); POTASSIUM 4.4 mmol/L (3.4-5.1); SGPT/ALT 14 U/L (5-49); TOTAL PROTEIN 7.3 gm/dL (6.0-8.0); TRIGLYCERIDES 57 mg/dl (<150)
== END | disposition home or self-care (01) ==
LOC: LAB 08:54
PROVIDERS: Student in an Organized Health Care Education/Training Program; ATTEND Internal Medicine Endocrinology, Diabetes & Metabolism
DX: E78.2 Mixed hyperlipidemia (principal); E10.621 Type 1 diabetes mellitus with foot ulcer

== ENCOUNTER → 2024-06-12 | Outpatient (CLI) | payer OTHER | END | disposition home or self-care (01) | LOC: RAD 08:56 | PROVIDERS: ATTEND Neurological Surgery | DX: M47.812 Spondylosis without myelopathy or radiculopathy, cervical region (principal); M48.02 Spinal stenosis, cervical region; M25.78 Osteophyte, vertebrae ==

== ENCOUNTER → 2024-08-25 | Outpatient (CLI) | payer OTHER ==
[2024-08-25 17:10] LABS: POTASSIUM 3.7 mmol/L (3.4-5.1); TOTAL PROTEIN 6.9 gm/dL (6.0-8.0)
== END | disposition home or self-care (01) ==
LOC: LAB 16:25
PROVIDERS: Student in an Organized Health Care Education/Training Program; ATTEND Internal Medicine Endocrinology, Diabetes & Metabolism
DX: E10.65 Type 1 diabetes mellitus with hyperglycemia (principal); E78.2 Mixed hyperlipidemia

== ENCOUNTER → 2024-10-07 | Outpatient (CLI) | payer OTHER | END | disposition home or self-care (01) | LOC: US 08:24 | PROVIDERS: ATTEND Internal Medicine | DX: N28.1 Cyst of kidney, acquired (principal); N17.9 Acute kidney failure, unspecified; E83.9 Disorder of mineral metabolism, unspecified ==

== ENCOUNTER → 2024-12-01 | Outpatient (CLI) | payer OTHER ==
[2024-12-01 10:27] LABS: FREE T4 1.19 ng/dl (0.89-1.76); LDL CHOLESTEROL 61.0 mg/dL (9-159)
== END | disposition home or self-care (01) ==
LOC: LAB 09:10
PROVIDERS: ATTEND Internal Medicine Endocrinology, Diabetes & Metabolism
DX: E10.65 Type 1 diabetes mellitus with hyperglycemia (principal); E78.2 Mixed hyperlipidemia; E03.9 Hypothyroidism, unspecified

== ENCOUNTER 2025-02-06 23:03 | Emergency (ER) | payer OTHER ==
[~2025-02-06] VITALS: Ht 167.6 cm; Wt 59.0 kg
[2025-02-07 00:24] LABS: BASO # 0.0 10*3/uL (0.0-0.1); BASO % 0.6 % (0.0-1.0); EOS # 0.5 10*3/uL (0.0-0.4); EOS % 6.3 % (1.0-4.0); MEAN CELL VOLUME 96.3 fl (81.0-99.0); MEAN CORPUSCULAR HGB 30.9 pg (27.0-31.0); MEAN PLATELET VOLUME 10.4 fl (9.6-12.3); MONO # 0.5 10*3/uL (0.1-1.0); MONO % 6.7 % (3.0-9.0); NEUT # 3.9 10*3/uL (2.3-7.9); NEUT % 53.8 % (47.0-73.0); NUCLEATED RED BLOOD CELL 0.0 % (0.0-0.0); NUCLEATED RED BLOOD CELL 0.0 10*3/uL (0.0-0.0); PLATELET COUNT AUTOMATED 312 10*3/uL (130-400); RED CELL DISTRI WIDTH 12.6 % (0-14.5)
[2025-02-07 00:42] LABS: BUN 25.0 mg/dl (9-23)
== END 2025-02-07 01:46 | disposition home or self-care (01) ==
LOC: ED 23:03
PROVIDERS: Emergency Medicine
DX: N17.9 Acute kidney failure, unspecified (principal); N18.9 Chronic kidney disease, unspecified; I10 Essential (primary) hypertension; E11.9 Type 2 diabetes mellitus without complications; Z79.899 Other long term (current) drug therapy; Z79.4 Long term (current) use of insulin; Z98.890 Other specified postprocedural states; F17.210 Nicotine dependence, cigarettes, uncomplicated